=== PATIENT | female | born 1985 | race Caucasian/White ===

== ENCOUNTER → 2016-06-06 | Outpatient (CLI) | payer BC | LOC: MW.CHOBGYN 09:07 | PROVIDERS: ATTEND Advanced Practice Midwife | DX: N96 Recurrent pregnancy loss (principal) | CPT/HCPCS: 36415; 84144 ==

== ENCOUNTER → 2016-06-16 | Outpatient (CLI) | payer BC | LOC: MW.CHOBGYN 09:23 | PROVIDERS: ATTEND Nurse Practitioner Women's Health | DX: O20.0 Threatened abortion (principal) | CPT/HCPCS: 36415; 84144 ==

== ENCOUNTER 2016-11-19 21:17 | Inpatient (IN) | payer BC ==
[2016-11-19] MEDS ORDERED: Carboprost Tromethamine 250 MCG/1 ML Amp IM PRN (21:48)
[2016-11-19] MEDS ORDERED: Sodium Chloride 0.9% 10 ML Syringe FLUSH PRN (21:48)
[2016-11-19] MEDS ORDERED: Misoprostol 200 MCG Tab PO PRN (21:48)
[2016-11-19] MEDS ORDERED: Sodium Chloride 0.9% 2.5 ML Syringe FLUSH PRN (21:48)
[2016-11-19] MEDS ORDERED: Lidocaine 1% 50 ML MDV INJECT PRN (21:48)
[2016-11-19] MEDS ORDERED: Methylergonovine 0.2 MG/1 ML Amp IM PRN (21:48)
[2016-11-19] MEDS ORDERED: Nalbuphine 10 MG/1 ML Vial IVPUSH PRN (21:48)
[2016-11-19] MEDS ORDERED: Water For Irrigation,Sterile 1,000 ML Container IRR PRN (21:48)
[2016-11-19] MEDS ORDERED: Butorphanol 1 MG/ML SDV IVPUSH PRN (21:48)
[2016-11-19] MEDS ORDERED: Lactated Ringers 1,000 ML IV SCH (22:00)
[2016-11-19] MEDS ORDERED: Oxytocin/Lactated Ringers 30 UNIT/500 ML BAG IV SCH (22:00)
--- NOTE | 2016-11-19 22:46 | PCM.LDHP ---
L&D History of Present Illness - General Date of Service: 11/19/16 Admit Problem/Dx: Patient Status Order with Admit Dx/Problem 11/19/16 21:48 Patient Status [ADT] Routine Admission Diagnosis/Problem Admission Diagnosis/Problem Source of Information: Patient History Limitations: Reports: No Limitations - History of Present Illness Improves with: Reports: None Worsens with: Reports: None Associated Symptoms: Reports: N - Related Data Allergies/Adverse Reactions: Allergies Allergy/AdvReac Type Severity Reaction Status Date / Time latex Allergy Severe Rash Verified 11/19/16 21:46 Penicillins Allergy Severe Rash Verified 11/19/16 21:45 H&P Review of Systems - Review of Systems: Review Of Systems: See Below General: Reports: No Symptoms HEENT: Reports: No Symptoms Pulmonary: Reports: No Symptoms Cardiovascular: Reports: No Symptoms Gastrointestinal: Reports: No Symptoms Genitourinary: Reports: No Symptoms Musculoskeletal: Reports: No Symptoms Skin: Reports: No Symptoms Psychiatric: Reports: No Symptoms Neurological: Reports: No Symptoms Hematologic/Lymphatic: Reports: No Symptoms Immunologic: Reports: No Symptoms L&D Exam - Exam Exam: See Below - Vital Signs Weight: 63.049 kg - OB Specific Fundal Height In cm: 37 Contraction Intensity: Moderate to Strong Movement: Active Heart Tones: Present Presentation: Vertex - Figueredo Score Figueredo Score Cervix Position: Anterior Figueredo Score Consistency: Soft Figueredo Score Effacement: >80% Figueredo Score Dilation: > 5 cm Figueredo Score 's Station: -2 Figueredo Score Total: 11 - Exam General: Alert, Oriented HEENT: PERRLA, Conjunctiva Clear, EACs Clear, EOMI, Hearing Intact, Mucosa Moist & [place], Nares Patent, Normal Nasal Septum, Posterior Pharynx Clear, TMs Clear Neck: Supple, Trachea Midline Lungs: Clear to Auscultation, Normal Respiratory Effort Cardiovascular: Regular Rate, Regular Rhythm GI/Abdominal Exam: Normal Bowel Sounds, Soft, Non-Tender, No Organomegaly, No Distention, No Abnormal Bruit, No Mass, Pelvis Stable Rectal Exam: Normal Exam, Normal Rectal Tone Genitourinary: Normal external exam, Normal bimanual exam, Normal speculum exam Back Exam: Normal Inspection, Full Range of Motion Extremities: Normal Inspection, Normal Range of Motion, Non-Tender, No Pedal Edema, Normal Capillary Refill Skin: Warm, Dry, Intact Neurological: Cranial Nerves Intact, Reflexes Equal Bilateral Psychiatric: Alert, Normal Affect, Normal Mood - Patient Data Lab Results Last 24 hrs: Laboratory Results - last 24 hr 11/19/16 Range/Units 21:59 WBC 12.76 H (4.0-11.0) K/uL RBC 4.05 L (4.30-5.90) M/uL Hgb 13.4 (12.0-16.0) g/dL Hct 39.3 (36.0-46.0) % MCV 97.0 (80.0-98.0) fL MCH 33.1 H (27.0-32.0) pg MCHC 34.1 (31.0-37.0) g/dL RDW Std Deviation 48.8 (28.0-62.0) fl RDW Coeff of Karen 14 (11.0-15.0) % Plt Count 144 L (150-400) K/uL MPV 12.00 (7.40-12.00) fL Nucleated RBC % 0.0 /100WBC Nucleated RBCs # 0 K/uL Result Diagrams: 11/19/16 21:59 Problem List Initiated/Reviewed/Updated: Yes Orders Last 24hrs: Active Orders 24 hr Category Date Time Status Patient Status [ADT] Routine ADT 11/19/16 21:48 Active Heart Tones [RC] CONTINUOUS Care 11/19/16 21:48 Active Non Stress Test [RC] PER UNIT ROUTINE Care 11/19/16 21:48 Active May Shower [RC] ASDIRECTED Care 11/19/16 21:48 Active Notify Provider [RC] PRN Care 11/19/16 21:48 Active Up ad Nadira [RC] ASDIRECTED Care 11/19/16 21:48 Active Vaginal Exam [RC] PRN Care 11/19/16 21:48 Active Vital Signs [RC] PER UNIT ROUTINE Care 11/19/16 21:48 Active TYPE AND SCREEN [BBK] Routine Lab 11/19/16 21:59 Received Butorphanol [Stadol] Med 11/19/16 21:48 Active 1 mg IVPUSH Q1H PRN Carboprost Tromethamine [Hemabate DS] Med 11/19/16 21:48 Active 250 mcg IM ASDIRECTED PRN Lactated Ringers [Ringers, Lactated] 1,000 ml Med 11/19/16 22:00 Active IV ASDIRECTED Lidocaine 1% [Xylocaine 1%] Med 11/19/16 21:48 Active 50 ml INJECT .ONCE PRN Methylergonovine [Methergine] Med 11/19/16 21:48 Active 0.2 mg IM ASDIRECTED PRN Misoprostol [Cytotec] Med 11/19/16 21:48 Active 200 mcg PO .ONCE PRN Nalbuphine [Nubain] Med 11/19/16 21:48 Active 10 mg IVPUSH Q1H PRN Sodium Chloride 0.9% [Saline Flush] Med 11/19/16 21:48 Active 10 ml FLUSH ASDIRECTED PRN Sodium Chloride 0.9% [Saline Flush] Med 11/19/16 21:48 Active 2.5 ml FLUSH ASDIRECTED PRN Water For Irrigation,Sterile [Sterile Water for Med 11/19/16 21:48 Active Irrigation] 1,000 ml IRR ASDIRECTED PRN Scalp Electrode [WOMSER] Per Unit Routine Oth 11/19/16 21:48 Ordered Peripheral IV Insertion Adult [OM.PC] Routine Oth 11/19/16 21:48 Ordered Resuscitation Status Routine Resus Stat 11/19/16 21:48 Ordered Medication Orders Butorphanol Tartrate (Stadol) 1 mg IVPUSH Q1H PRN PRN Reason: Pain Carboprost Tromethamine (Hemabate Ds) 250 mcg IM ASDIRECTED PRN PRN Reason: Post Hemorrhage Lactated Ringer's (Ringers, Lactated) 1,000 mls @ 150 mls/hr IV ASDIRECTED REID Lidocaine HCl (Xylocaine 1%) 50 ml INJECT .ONCE PRN PRN Reason: Laceration repair Methylergonovine Maleate (Methergine) 0.2 mg IM ASDIRECTED PRN PRN Reason: Post Hemorrhage Misoprostol (Cytotec) 200 mcg PO .ONCE PRN PRN Reason: Post Hemorrhage Nalbuphine HCl (Nubain) 10 mg IVPUSH Q1H PRN PRN Reason: Pain (severe 7-10) Stop: 11/19/16 23:49 Sodium Chloride (Saline Flush) 10 ml FLUSH ASDIRECTED PRN PRN Reason: Keep Vein Open Sodium Chloride (Saline Flush) 2.5 ml FLUSH ASDIRECTED PRN PRN Reason: Keep Vein Open Sterile Water (Sterile Water For Irrigation) 1,000 ml IRR ASDIRECTED PRN PRN Reason: delivery Assessment/Plan Comment:: Term in active labor.
[2016-11-20] MEDS ORDERED: Ibuprofen 800 MG Tab PO PRN (01:16)
[2016-11-20] MEDS ORDERED: Witch Hazel Medicated Pads 40/Jar TOP PRN (01:16)
[2016-11-20] MEDS ORDERED: oxyCODONE 5 MG Tab PO PRN (01:16)
[2016-11-20] MEDS ORDERED: Benzocaine/Menthol 20%-0.5% Spray 78 GM Cannister TOP PRN (01:16)
[2016-11-20] MEDS ORDERED: Bisacodyl 10 MG Supp RECTAL PRN (01:16)
[2016-11-20] MEDS ORDERED: Lanolin 100% Cream 7 GM Tube TOP PRN (01:16)
[2016-11-20] MEDS ORDERED: Docusate Sodium 100 MG Cap PO PRN (01:16)
[2016-11-20] MEDS ORDERED: Ibuprofen 400 MG Tab PO PRN (01:16)
[2016-11-20] MEDS ORDERED: Acetaminophen 500 MG Tab PO PRN ×2 (01:16)
--- NOTE | 2016-11-20 02:19 | OR ---
SURGEON: Armani Martin MD DATE OF PROCEDURE: DELIVERY NOTE: Ms. Finney is a 31-year-old patient. She is nulliparous. She is followed in our clinic. She primarily is followed by our nurse industrial maintenance technician, Ayleen Enriquez. She is term. She is admitted in active labor. At the time of admission, she was about 5 cm complete, vertex with bulging bag of water. Initial monitoring of the baby shows heart rate category 1. The patient had . She declined IV. She declined continuous monitoring, and she declined anesthesia. She liked to go natural. She continued to progress without any problem. Eventually, the heart rate was category 1 when it is monitored and eventually, she became complete, complete and she had spontaneous rupture of the membrane with clear fluid, and she was able to accomplish normal spontaneous vaginal delivery of female fetus. score reported to be 8 and 9. The weight is not available. Placenta delivered spontaneous, complete, and intact without any problem. The patient had a first-degree perineal laceration, and she consented for repair of the laceration, and laceration was infiltrated with copious amount of 1% Xylocaine and using 3-0 Vicryl, the laceration was repaired with 3-0 Vicryl continuous in a normal manner without any problem. Estimated blood loss was 250 to 300 mL in this delivery. There was no complication. YAEL / BOB /[id number]
[2016-11-20 09:57] VITALS: BP 132/75
--- NOTE | 2016-11-20 10:12 | PCM.PNPP ---
- General Info Date of Service: 11/20/16 Functional Status: Reports: Pain Controlled - Review of Systems General: Reports: No Symptoms HEENT: Reports: No Symptoms Pulmonary: Reports: No Symptoms Cardiovascular: Reports: No Symptoms Gastrointestinal: Reports: No Symptoms Genitourinary: Reports: No Symptoms Musculoskeletal: Reports: No Symptoms Skin: Reports: No Symptoms Neurological: Reports: No Symptoms Psychiatric: Reports: No Symptoms - General Info Date of Service: 11/20/16 - Patient Data Vital Signs - Most Recent: Last Vital Signs Temp 36.6 C 11/20/16 08:50 Pulse 72 11/20/16 08:50 Resp 18 11/20/16 08:50 BP 132/75 11/20/16 08:50 Pulse Ox 97 11/20/16 08:50 Weight - Most Recent: 63.049 kg Lab Results - Last 24 Hours: Laboratory Results - last 24 hr 11/19/16 11/19/16 Range/Units 21:59 21:59 WBC 12.76 H (4.0-11.0) K/uL RBC 4.05 L (4.30-5.90) M/uL Hgb 13.4 (12.0-16.0) g/dL Hct 39.3 (36.0-46.0) % MCV 97.0 (80.0-98.0) fL MCH 33.1 H (27.0-32.0) pg MCHC 34.1 (31.0-37.0) g/dL RDW Std Deviation 48.8 (28.0-62.0) fl RDW Coeff of Karen 14 (11.0-15.0) % Plt Count 144 L (150-400) K/uL MPV 12.00 (7.40-12.00) fL Nucleated RBC % 0.0 /100WBC Nucleated RBCs # 0 K/uL Blood Type B POSITIVE Antibody Screen NEGATIVE Med Orders - Current: Current Medications Acetaminophen (Tylenol Extra Strength) 500 mg PO Q4H PRN PRN Reason: Pain Acetaminophen (Tylenol Extra Strength) 1,000 mg PO Q4H PRN PRN Reason: Pain Benzocaine/Menthol (Dermoplast Pain Relief 20%-0.5% Withams) 78 gm TOP ASDIRECTED PRN PRN Reason: Perineal Comfort Measure Bisacodyl (Dulcolax) 10 mg RECTAL .ONCE PRN PRN Reason: Constipation Butorphanol Tartrate (Stadol) 1 mg IVPUSH Q1H PRN PRN Reason: Pain Carboprost Tromethamine (Hemabate Ds) 250 mcg IM ASDIRECTED PRN PRN Reason: Post Hemorrhage Docusate Sodium (Colace) 100 mg PO BID PRN PRN Reason: Constipation Emollient Ointment (Lansinoh Hpa) 0 gm TOP ASDIRECTED PRN PRN Reason: Sore Nipples Lactated Ringer's (Ringers, Lactated) 1,000 mls @ 150 mls/hr IV ASDIRECTED REID Ibuprofen (Motrin) 400 mg PO Q4H PRN PRN Reason: Pain Ibuprofen (Motrin) 800 mg PO Q6H PRN PRN Reason: Pain Lidocaine HCl (Xylocaine 1%) 50 ml INJECT .ONCE PRN PRN Reason: Laceration repair Methylergonovine Maleate (Methergine) 0.2 mg IM ASDIRECTED PRN PRN Reason: Post Hemorrhage Misoprostol (Cytotec) 200 mcg PO .ONCE PRN PRN Reason: Post Hemorrhage Oxycodone HCl (Oxycodone) 5 mg PO Q2H PRN PRN Reason: Pain Sodium Chloride (Saline Flush) 10 ml FLUSH ASDIRECTED PRN PRN Reason: Keep Vein Open Sodium Chloride (Saline Flush) 2.5 ml FLUSH ASDIRECTED PRN PRN Reason: Keep Vein Open Sterile Water (Sterile Water For Irrigation) 1,000 ml IRR ASDIRECTED PRN PRN Reason: delivery Witch Priya (Tucks) 1 pad TOP ASDIRECTED PRN PRN Reason: comfort care Discontinued Medications Oxytocin/Lactated Ringer's (Pitocin In Lr 30 Units/500 Ml) 30 unit in 500 mls @ 999 mls/hr IV TITRATE REID Stop: 11/19/16 22:31 Nalbuphine HCl (Nubain) 10 mg IVPUSH Q1H PRN PRN Reason: Pain (severe 7-10) Stop: 11/19/16 23:49 - Interaction Disposition, : [place] in Room with Family Interaction: Holding Infant Feeding: Attempted ; Nursed Fair/Poor Support Person: - Exam General: Alert, Oriented HEENT: Pupils Equal Neck: Supple Lungs: Clear to Auscultation, Normal Respiratory Effort Cardiovascular: Regular Rate, Regular Rhythm GI/Abdominal Exam: Normal Bowel Sounds, Soft, Non-Tender, No Organomegaly, No Distention, No Abnormal Bruit, No Mass, Pelvis Stable Extremities: Normal Inspection, Normal Range of Motion, Non-Tender, No Pedal Edema, Normal Capillary Refill Skin: Warm, Dry, Intact Wound/Incisions: Healing Well Neurological: No New Focal Deficit Psy/Mental Status: Alert, Normal Affect, Normal Mood - Problem List Review Problem List Initiated/Reviewed/Updated: Yes - My Orders Last 24 Hours: My Active Orders 11/19/16 21:48 Heart Tones [RC] CONTINUOUS Non Stress Test [RC] PER UNIT ROUTINE May Shower [RC] ASDIRECTED Notify Provider [RC] PRN Up ad Nadira [RC] ASDIRECTED Vaginal Exam [RC] PRN Vital Signs [RC] PER UNIT ROUTINE Butorphanol [Stadol] 1 mg IVPUSH Q1H PRN Carboprost Tromethamine [Hemabate DS] 250 mcg IM ASDIRECTED PRN Lidocaine 1% [Xylocaine 1%] 50 ml INJECT .ONCE PRN Methylergonovine [Methergine] 0.2 mg IM ASDIRECTED PRN Misoprostol [Cytotec] 200 mcg PO .ONCE PRN Sodium Chloride 0.9% [Saline Flush] 10 ml FLUSH ASDIRECTED PRN Sodium Chloride 0.9% [Saline Flush] 2.5 ml FLUSH ASDIRECTED PRN Water For Irrigation,Sterile [Sterile Water for Irrigation] 1,000 ml IRR ASDIRECTED PRN Scalp Electrode [WOMSER] Per Unit Routine Peripheral IV Insertion Adult [OM.PC] Routine Resuscitation Status Routine 11/19/16 22:00 Lactated Ringers [Ringers, Lactated] 1,000 ml IV ASDIRECTED 11/20/16 01:16 Patient Status [ADT] Routine May Shower [RC] ASDIRECTED Up ad Nadira [RC] ASDIRECTED Vital Signs [RC] PER UNIT ROUTINE Acetaminophen [Tylenol Extra Strength] 1,000 mg PO Q4H PRN Acetaminophen [Tylenol Extra Strength] 500 mg PO Q4H PRN Benzocaine/Menthol [Dermoplast Pain Relief 20%-0.5% Withams] 78 gm TOP ASDIRECTED PRN Bisacodyl [Dulcolax] 10 mg RECTAL .ONCE PRN Docusate Sodium [Colace] 100 mg PO BID PRN Ibuprofen [Motrin] 400 mg PO Q4H PRN Ibuprofen [Motrin] 800 mg PO Q6H PRN Lanolin [Lansinoh HPA] See Dose Instructions TOP ASDIRECTED PRN Witch Priya [Tucks] 1 pad TOP ASDIRECTED PRN oxyCODONE 5 mg PO Q2H PRN Assess Lochia [WOMSER] Per Unit Routine Assess Uterine Involution [WOMSER] Per Unit Routine Peripheral IV Discontinue [OM.PC] Routine 11/21/16 05:11 HEMOGLOBIN/HEMATOCRIT,HH [HEME] Timed - Plan Plan:: Term in active labor.
== END 2016-11-20 16:50 | disposition home or self-care (01) | DRG 560 ==
LOC: MW.OBCHECK 21:17 → MW.OB 21:42 → OBSVTOIN 11-20 00:55 → MW.OBCHECK 11-20 00:55 → MW.OB 11-20 07:57
PROVIDERS: ADMIT Obstetrics & Gynecology; ATTEND Obstetrics & Gynecology
PROC: 10E0XZZ Delivery of Products of Conception, External Approach (ICD-10-PCS; principal; 2016-11-20)
PROC: 0HQ9XZZ Repair Perineum Skin, External Approach (ICD-10-PCS; 2016-11-20)
DX: O70.0 First degree perineal laceration during delivery (principal); Z3A.39 39 weeks gestation of pregnancy; Z37.0 Single live birth; Z91.040 Latex allergy status; Z88.0 Allergy status to penicillin
CPT/HCPCS: 36415; 59025; 85027; 86850; 86900; 86901

== ENCOUNTER 2024-03-19 10:14 | Emergency (ER) | payer SELFPAY ==
[2024-03-19 10:59] VITALS: BP 137/89; PULSE 96
== END 2024-03-19 11:06 | disposition home or self-care (01) ==
LOC: MW.ED 10:14
DX: Z00.00 Encounter for general adult medical examination without abnormal findings (principal)
CPT/HCPCS: 99283